=== PATIENT | male | born 1955 | race Caucasian/White ===

== ENCOUNTER → 2019-06-27 | Outpatient (CLI) | payer MEDICARE | END | disposition home or self-care (01) | LOC: CPPFTMAIN 12:40 | PROVIDERS: ATTEND Internal Medicine Critical Care Medicine | DX: J45.909 Unspecified asthma, uncomplicated (principal) | CPT/HCPCS: 94060; 94726; 94729 ==

== ENCOUNTER 2021-04-16 15:09 | Emergency (ER) | payer MEDICARE ==
[2021-04-16 15:26] VITALS: TEMP 98.4
--- NOTE | 2021-04-16 16:08 | ED ---
General Adult HPI - General Chief complaint: Syncope Stated complaint: High Blood Pressure, Lightheaded Time Seen by Provider: 04/16/21 15:48 Source: patient Mode of arrival: wheelchair Limitations: no limitations - History of Present Illness Initial comments: Dictation was produced using edupristine dictation software. please excuse any grammatical, word or spelling errors. Chief Complaint: 65-year-old male presents emergency department for episode of confusion History of Present Illness: 65-year-old well-appearing male. Denies any symptoms currently. He states he was talking with his when all of a sudden and he had a blank stare that lasted for several seconds. He was told that he was confused. States that he is feeling much better now. Over the last several weeks he has lost 27 pounds intentionally in an attempt to lose weight. Has history of high blood pressure and high cholesterol. Patient has any pain complaints. Denies any numbness and paresthesias to the arms or legs. No vision changes. Patient said he did not black out or fall to the ground. The ROS documented in this emergency department record has been reviewed and confirmed by me. Those systems with pertinent positive or negative responses h ave been documented in the HPI. All other systems are other negative and/or noncontributory. PHYSICAL EXAM: General Impression: Alert and oriented x3, not in acute distress HEENT: Normocephalic atraumatic, extra-ocular movements intact, pupils equal and reactive to light bilaterally, mucous membranes moist. Cardiovascular: Heart regular rate and rhythm Chest: Able to complete full sentences, no retractions, no tachypnea Abdomen: abdomen soft, non-tender, non-distended, no organomegaly Musculoskeletal: Pulses present and equal in all extremities, no peripheral edema Motor: no focal deficits noted Neurological: CN II-XII grossly intact, no focal motor or sensory deficits noted Skin: Intact with no visualized rashes Psych: Normal affect and mood ED course: 65-year-old well-appearing male presents to the emergency department for episode of staring out into space front of his . Patient is well- appearing at bedside. Vital signs are within acceptable limits. Clinical presentation concerning for episode of presyncope. Return evaluation obtained. CBC, metabolic panel is unremarkable. Patient observed in emergency department for approximately 1 hour 30 minutes. His repetitive bedside at 4:40 PM on be stable medical condition. Patient will be discharged. Advised follow-up with primary care doctor. Return precautions discussed. EKG interpretation: Ventricular rate 71, normal sinus rhythm, MS interval 134, QRS 82, QTc 436. No MS prolongation, no QTC prolongation, no ST or T-wave changes noted. Overall, this EKG is unremarkable - Related Data Allergies Allergy/AdvReac Type Severity Reaction Status Date / Time amoxicillin [From Augmentin] Allergy Unknown Verified 04/16/21 16:37 clavulanic acid Allergy Unknown Verified 04/16/21 16:37 [From Augmentin] Review of Systems ROS Statement: Those systems with pertinent positive or pertinent negative responses have been documented in the HPI. ROS Other: All systems not noted in ROS Statement are negative. Past Medical History Past Medical History: Hyperlipidemia, Hypertension Additional Past Medical History / Comment(s): seasonal allergies History of Any Multi-Drug Resistant Organisms: None Reported Past Surgical History: No Surgical Hx Reported Additional Past Surgical History / Comment(s): bone marrow, stem cell transplant Past Psychological History: No Psychological Hx Reported Smoking Status: Former smoker Past Alcohol Use History: None Reported Past Drug Use History: None Reported General Exam Limitations: no limitations Course Vital Signs 04/16/21 15:21 Temperature 98.4 F Pulse Rate 75 Respiratory 20 Rate Blood Pressure 157/102 O2 Sat by Pulse 98 Oximetry Medical Decision Making - Lab Data Result diagrams: 04/16/21 Unknown 04/16/21 Unknown Lab Results 04/16/21 04/16/21 Range/Units Unknown Unknown WBC 11.0 H (3.8-10.6) k/uL RBC 4.95 (4.30-5.90) m/uL Hgb 16.0 (13.0-17.5) gm/dL Hct 46.7 (39.0-53.0) % MCV 94.3 (80.0-100.0) fL MCH 32.3 (25.0-35.0) pg MCHC 34.2 (31.0-37.0) g/dL RDW 15.0 (11.5-15.5) % Plt Count 242 (150-450) k/uL MPV 6.8 Neutrophils % 63 % Lymphocytes % 27 % Monocytes % 5 % Eosinophils % 2 % Basophils % 1 % Neutrophils # 7.0 (1.3-7.7) k/uL Lymphocytes # 3.0 (1.0-4.8) k/uL Monocytes # 0.6 (0-1.0) k/uL Eosinophils # 0.2 (0-0.7) k/uL Basophils # 0.1 (0-0.2) k/uL Sodium 136 L (137-145) mmol/L Potassium 4.0 (3.5-5.1) mmol/L Chloride 105 (98-107) mmol/L Carbon Dioxide 22 (22-30) mmol/L Anion Gap 9 mmol/L BUN 18 (9-20) mg/dL Creatinine 0.67 (0.66-1.25) mg/dL Est GFR (CKD-EPI)AfAm >90 (>60 ml/min/1.73 sqM) Est GFR (CKD-EPI)NonAf >90 (>60 ml/min/1.73 sqM) Glucose 170 H (74-99) mg/dL Calcium 9.5 (8.4-10.2) mg/dL Magnesium 1.7 (1.6-2.3) mg/dL Disposition Clinical Impression: Pre-syncope Disposition: HOME SELF-CARE Condition: Fair Instructions (If sedation given, give patient instructions): Near Syncope (ED) Is patient prescribed a controlled substance at d/c from ED?: No Referrals: Min See MD [Primary Care Provider] - 1-2 days
[2021-04-16 16:20] LABS: Basophils # (A) 0.1 k/uL (0-0.2); Basophils % (A) 1 %; Eosinophils # (A) 0.2 k/uL (0-0.7); Eosinophils % (A) 2 %; HCT 46.7 % (39.0-53.0); Lymphocytes % (A) 27 %; MCH 32.3 pg (25.0-35.0); MCHC 34.2 g/dL (31.0-37.0); MCV 94.3 fL (80.0-100.0); Mean Platelet Volume 6.8; Monocytes # (A) 0.6 k/uL (0-1.0); Monocytes % (A) 5 %; Neutrophils % (A) 63 %; Platelet Count 242 k/uL (150-450); RBC 4.95 m/uL (4.30-5.90)
[2021-04-16 16:28] LABS: African American GFR (CKD) >90 (>60 ml/min/1.73 sqM); Anion Gap 9 mmol/L; Blood Urea Nitrogen 18 mg/dL (9-20); Calcium 9.5 mg/dL (8.4-10.2); Carbon Dioxide 22 mmol/L (22-30); Chloride 105 mmol/L (98-107); Glucose 170 mg/dL (74-99); Magnesium 1.7 mg/dL (1.6-2.3); Non-African American GFR(CKD) >90 (>60 ml/min/1.73 sqM); Sodium 136 mmol/L (137-145)
[2021-04-16 17:10] VITALS: BP 147/117; PULSE 65; RESP 18
== END 2021-04-16 17:10 | disposition home or self-care (01) ==
LOC: EC 15:09
DX: R55 Syncope and collapse (principal); I10 Essential (primary) hypertension; E78.5 Hyperlipidemia, unspecified; E78.00 Pure hypercholesterolemia, unspecified; Z87.891 Personal history of nicotine dependence; Z88.0 Allergy status to penicillin; Z88.1 Allergy status to other antibiotic agents
CPT/HCPCS: 36415; 80048; 83735; 85025; 93005; 99284

== ENCOUNTER → 2023-07-28 | Outpatient (CLI) | payer MEDICARE ==
--- NOTE | 2023-07-28 12:10 | CA ---
Transthoracic Echo Report Name: Robert Rahman Age: 67 Gender: M : 1955 Exam Date: 07/28/2023 08:31 Exam Location: [place] Echo Ht (in): 68 Wt (lb): 208 Ordering Physician: Min See MD Attending/Referring Phys: Min See MD Senior Product Development Engineer Hannah Sanders [facility] Procedure CPT: Indications: R93.1 ABNM FINDIN IMAGING OF HEART Cardiac Hx: Technical Quality: Fair Contrast 1: Total Dose (mL): Contrast 2: Total Dose (mL): MEASUREMENTS (Male / Female) Normal Values 2D ECHO LV Diastolic Diameter PLAX 5.2 cm 4.2 - 5.9 / 3.9 - 5.3 cm LV Systolic Diameter PLAX 3.5 cm IVS Diastolic Thickness 1.0 cm 0.6 - 1.0 / 0.6 - 0.9 cm LVPW Diastolic Thickness 1.0 cm 0.6 - 1.0 / 0.6 - 0.9 cm LV Relative Wall Thickness 0.4 LVOT Diameter 2.2 cm LV Diastolic Volume MOD BP 94.8 cm??? 67 - 155 / 56 - 104 cm??? LV Systolic Volume MOD BP 43.2 cm??? 22 - 58 / 19 - 49 cm??? LV Ejection Fraction MOD BP 54.4 % >= 55 % LV Cardiac Index MOD BP 1268.8 cm???/min???m??? LV Diastolic Volume MOD 4C 98.3 cm??? LV Systolic Volume MOD 4C 42.7 cm??? LV Ejection Fraction MOD 4C 56.6 % LV Cardiac Index MOD 4C 1366.7 cm???/min???m??? LV Diastolic Length 4C 8.8 cm LV Systolic Length 4C 7.2 cm LV Diastolic Volume MOD 2C 91.1 cm??? LV Systolic Volume MOD 2C 42.2 cm??? LV Ejection Fraction MOD 2C 53.7 % LV Cardiac Index MOD 2C 1203.5 cm???/min???m??? LV Diastolic Length 2C 8.9 cm LV Systolic Length 2C 7.6 cm Ascending Aorta Diameter 3.7 cm M-MODE Aortic Root Diameter MM 3.1 cm LA Systolic Diameter MM 3.6 cm LA Ao Ratio MM 1.2 AV Cusp Separation MM 2.5 cm DOPPLER AV Peak Velocity 116.0 cm/s AV Peak Gradient 5.4 mmHg AV Mean Velocity 78.7 cm/s AV Mean Gradient 2.8 mmHg AV Velocity Time Integral 25.4 cm AI Peak Velocity 445.7 cm/s AI Peak Gradient 79.5 mmHg AI Pressure Half Time 964.1 ms LVOT Peak Velocity 102.4 cm/s LVOT Peak Gradient 4.2 mmHg LVOT Velocity Time Integral 20.2 cm LVOT Stroke Volume 79.3 cm??? LVOT Stroke Volume Index 38.2 ml/m??? LVOT Cardiac Index 1949.5 cm???/min???m??? AV Area Cont Eq vti 3.1 cm??? AV Area Cont Eq pk 3.5 cm??? Mitral E Point Velocity 63.9 cm/s Mitral A Point Velocity 83.6 cm/s Mitral E to A Ratio 0.8 MV Deceleration Time 198.4 ms LV E' Lateral Velocity 12.1 cm/s Mitral E to LV E' Lateral Ratio 5.3 LV E' Septal Velocity 7.4 cm/s Mitral E to LV E' Septal Ratio 8.7 TR Peak Velocity 238.1 cm/s TR Peak Gradient 22.7 mmHg Right Atrial Pressure 3.0 mmHg Pulmonary Artery Systolic Pressu 25.7 mmHg Right Ventricular Systolic Press 25.7 mmHg FINDINGS Left Ventricle Left ventricular wall thickness at upper limits of normal. Left ventricular cavity size normal. Low normal left ventricular systolic function with no obvious regional wall motion abnormalities. Left ventricular ejection fraction is estimated at 50-55%. Right Ventricle Normal right ventricular size. Right Atrium Normal right atrial size. Left Atrium Normal left atrial size. Mitral Valve Structurally normal mitral valve. Trace mitral regurgitation. Aortic Valve Trileaflet aortic valve. Thickening of the aortic valve cusps. Mild aortic regurgitation. Tricuspid Valve Structurally normal tricuspid valve. Trace to mild tricuspid regurgitation. Pulmonic Valve Pulmonic valve not well visualized. Trace pulmonic regurgitation. Pericardium No pericardial effusion. Aorta Normal size aortic root and proximal ascending aorta. CONCLUSIONS Left ventricular ejection fraction is estimated at 50-55%. No obvious regional wall motion abnormalities. Mild aortic regurgitation. No other significant valvular dysfunction RVSP estimated at 25 mmHg Previewed by: Dr Danilo Orr (Electronically Signed) Final Date: 28 July 2023 12:09
== END | disposition home or self-care (01) ==
LOC: RADECHMAIN 07:55
PROVIDERS: ATTEND Internal Medicine
DX: I35.1 Nonrheumatic aortic (valve) insufficiency (principal); R93.1 Abnormal findings on diagnostic imaging of heart and coronary circulation
CPT/HCPCS: 93306

== ENCOUNTER → 2023-07-28 | Outpatient (CLI) | payer MEDICARE ==
--- NOTE | 2023-07-28 12:04 | CA ---
Exercise Nuclear Stress Test Report Name: Robert Ramhan Exam Date: 07/28/2023 10:18 Exam Location: [place] Stress Ht (in): 68 Wt (lb): 208 BSA: 2.08 Ordering Phys: Min See MD Referring Phys: Mayi, Technologist: Bo Fair Age: 67 Gender: M : 1955 Procedure CPT: Indications: R93.1 ABNM FINDIN IMAGING OF HEART ICD-10 Codes: Patient History: Medications: SEE LIST Meds past 24 hrs: Pretest Chest Pain: STRESS TEST John Protocol Exercise Duration (min:sec): 09:[address] Depressions (mm): Angina Score: Peguero Score: Resting HR (bpm): 63 Peak HR (bpm): 135 Resting BP (mmHg): 123 / 75 Peak BP (mmHg): 186 / 88 MPHR: 154 Target HR: 131 % MPHR: 88 METS: 10.3 Total Dose: Peak Dose: Atropine: Double Product: 04555 BP Response: Stress Termination: Reached target heart rate Stress Symptoms: No chest pain or symptoms Stress Summary: ECG ANALYSIS Resting ECG: Sinus bradycardia, normal axis, heart rate 48 bpm Stress ECG: No significant ST-T wave changes that are diagnostic for ischemia with Lexiscan infusion. There were occasional PACs. There were no sustained arrhythmias. CONCLUSIONS Good exercise tolerance for patient's age achieving 10.3 METS Nonischemic ECG response to treadmill exercise Normal hemodynamic and clinical response to exercise Overall normal ECG portion of the treadmill nuclear stress test Please refer to the nuclear portion of the imaging for the complete interpretation of the test Dr Danilo Orr (Electronically Signed) Final Date: 28 July 2023 12:03
--- NOTE | 2023-07-29 07:40 | NM ---
EXAMINATION TYPE: NM stress cardiolite complete DATE OF EXAM: 07/28/2023 COMPARISON: NONE HISTORY: Abnormal findings of heart, hypertension and hypercholesterolemia TECHNIQUE: After the intravenous administration of 10.0 mCi Tc 99m Sestamibi - Cardiolite resting SP ECT images acquired 45 minutes post injection. At peak stress 25.8 mCi Tc 99m Sestamibi - Stress images obtained 20 minutes post injection The patient was stressed on a treadmill reaching greater than 85% of predicted maximum heart rate. FINDINGS: No fixed defects are evident No reversible stress defects on Spect images Wall motion is normal Ejection fraction is calculated to be 61 %. IMPRESSION: 1. No stress-induced ischemic changes
== END | disposition home or self-care (01) ==
LOC: RADNMMAIN 07:58
PROVIDERS: ATTEND Internal Medicine
DX: R93.1 Abnormal findings on diagnostic imaging of heart and coronary circulation (principal); R07.9 Chest pain, unspecified
CPT/HCPCS: 93017; 78452; A9500

== ENCOUNTER → 2024-09-06 | Outpatient (CLI) | payer MEDICARE ==
[2024-09-06 15:23] LABS: Ceruloplasmin 13.2 mg/dL (20.0-60.0)
[2024-09-06 19:41] LABS: Anti-DNA, DS unit <1.0 IU/mL; DNA Double-Stranded Negative (Negative)
== END | disposition home or self-care (01) ==
LOC: LABWHC1 11:25
PROVIDERS: ATTEND Internal Medicine
DX: R76.8 Other specified abnormal immunological findings in serum (principal)
CPT/HCPCS: 36415; 81256; 82390; 83516; 86225; 86235